=== PATIENT | female | born 1985 | race African-American/Black ===

== ENCOUNTER 2016-10-20 11:54 | Emergency (ER) | payer OTHER ==
[2016-10-20 12:01] VITALS: BP 151/79; PULSE 95; TEMP 98.3; BMI 25.4
--- NOTE | 2016-10-20 12:30 | PDOC ---
History of Present Illness - General Chief Complaint: Pain Stated Complaint: FATIGUE, PELVIC PAIN Time Seen by Provider: 10/20/16 12:06 History Source: Patient Exam Limitations: No Limitations - History of Present Illness Travel History: No Initial Comments: 10/20/16 12:18 Patient comes to emergency department for evaluation of worsened abdominal cramping, back pain, and knowledge of large fibroids. Patient states has seen Dr. Sanchez multiple occasions, for profuse bleeding and severe anemia associated with her fibroids. Is ineligible financially/from insurance for Lupron injections, and Dr. Sanchez has recommended hysterectomy for excision. Patient is hoping not to need surgical intervention,. Denies fever, nausea vomiting, any changes in bowel, no dysuria. States has onset of worsened pain that she's experienced now with onset of menstrual cycle in approximately one week. However states today's pain is much worse 10/20/16 12:32 10/22/16 10:11 Timing/Duration: reports: getting worse, changing over time, intermittent Quality: reports: moderate, severe, cramping, dullness Abdominal Pain Onset Location: reports: suprapubic, generalized abdomen Pain Radiation: reports: no radiation Alleviating Factors: improves with: None Past History - Travel Traveled outside of the country in the last 30 days: No Close contact w/someone who was outside of country & ill: No - Past Medical History Allergies/Adverse Reactions: Allergies Allergy/AdvReac Type Severity Reaction Status Date / Time No Known Drug Allergies Allergy Verified 10/20/16 12:00 Home Medications: Ambulatory Orders Ferrous Sulfate 325 mg PO TIDCM #90 tablet 07/13/15 Anemia: Yes Asthma: No Cancer: No Cardiac Disorders: No CVA: No COPD: No CHF: No Dementia: No Diabetes: No GI Disorders: No Disorders: Yes (uterine fibroid) HTN: No Hypercholesterolemia: No Liver Disease: No Seizures: No Thyroid Disease: No - Surgical History Abdominal Surgery: No Appendectomy: No Cardiac Surgery: No Cholecystectomy: Yes Lung Surgery: No Neurologic Surgery: No Orthopedic Surgery: Yes (left ankle ORIF) - Family Disease History Family Disease History: Diabetes: Grandparents, Heart Disease: Mother - Immunization History Immunization Up to Date: Yes - Psycho/Social/Smoking Cessation Hx Anxiety: No Suicidal Ideation: No Smoking History: Never smoked Have you smoked in the past 12 months: No Hx Alcohol Use: Yes (SOCIAL) Drug/Substance Use Hx: No Substance Use Type: None Hx Substance Use Treatment: No Review of Systems - Review of Systems Able to Perform ROS?: No Is the patient limited Chinese proficient: No Constitutional: Yes: Symptoms Reported, See HPI, Malaise. No: Chills, Fever HEENTM: Yes: See HPI. No: Symptoms Reported Respiratory: Yes: See HPI. No: Symptoms reported ABD/GI: Yes: Symptoms Reported, See HPI, Abdominal cramping, Other. No: Nausea , Rectal Bleeding, Vomiting Neurological: Yes: Symptoms reported All Other Systems: Reviewed and Negative *Physical Exam - Vital Signs Last Vital Signs Temp Pulse Resp BP Pulse Ox 98.3 F 95 H 20 151/79 100 10/20/16 11:57 10/20/16 11:57 10/20/16 11:57 10/20/16 11:57 10/20/16 11:57 - Physical Exam General Appearance: Yes: Nourished, Appropriately Dressed, Apparent Distress, Mild Distress HEENT: positive: TONYA, Normal ENT Inspection, TMs Normal, Pharynx Normal Neck: positive: Supple. negative: Tender Respiratory/Chest: positive: Lungs Clear, Normal Breath Sounds Cardiovascular: positive: Regular Rhythm Gastrointestinal/Abdominal: positive: Normal Bowel Sounds, Tender (mild suprapubic tendernes ), Soft. negative: Organomegaly, Guarding, Rebound Musculoskeletal: positive: Normal Inspection. negative: CVA Tenderness Extremity: positive: Normal Capillary Refill, Normal Inspection, Tender Integumentary: positive: Dry, Warm, Pale Neurologic: positive: nursing admin II-XII NML intact, Fully Oriented, Alert, Normal Mood/ Affect, Normal Response, Motor Strength / ED Treatment Course - LABORATORY CBC & Chemistry Diagram: 10/20/16 12:50 10/20/16 12:50 Progress Note - Progress Note Progress Note: Uterine fibroids, with heavy menses. We'll check H&H, provide pain meds and reeval. Medical Decision Making - Medical Decision Making 10/20/16 14:09 H&H 24 and 7.6. Reviewed with patient who reports that she does not wish transfusion. Follow up with her [facility] doctor and understands need for increasing fluids 10/22/16 10:13 *DC/Admit/Observation/Transfer Diagnosis at time of Disposition: Menorrhagia Qualifiers: Menorrahagia type: with onset of menstrual periods Qualified Code(s): N92.2 - Excessive menstruation at puberty Anemia Qualifiers: Anemia type: unspecified type Qualified Code(s): D64.9 - Anemia, unspecified - Discharge Dispostion Disposition: HOME Condition at time of disposition: Stable Admit: No - Patient Instructions Printed Discharge Instructions: DI for Uterine Fibroids Additional Instructions: Rest, drink lots of fluids: Teas, water, soups Ebnita agustina, carbonated beverages for the bubbles May try peppermint teas Continue [id number] medications for symptomatic relief Tylenol or Motrin for fever and pain Followup with private physician in one to 2 days Return to emergency department for worsened symptoms, fevers, dehydration - Post Discharge Activity Work/School Note: Back to Work
[2016-10-20] MEDS ORDERED: KETOROLAC TROMETHAMINE 60 MG/2 ML VIAL IM ONE (12:37)
[2016-10-20] MEDS ORDERED: KETOROLAC TROMETHAMINE 60 MG/2 ML VIAL ONE (13:06)
[2016-10-20 13:22] LABS: BASOPHIL 0.8 % (0-2.0); EOSINOPHIL 1.1 % (0-4.5); MCHC 29.5 g/dl (32.0-36.0); MEAN PLT VOLUME 9.6 fl (7.5-11.1); NEUTROPHILS 79.4 % (42.8-82.8); PLATELET COUNT 191 K/MM3 (134-434); RDW 20.8 % (11.6-15.6); WHITE BLOOD COUNT 8.6 K/mm3 (4.0-10.0)
[2016-10-20 13:23] LABS: MCH 18.6 pg (25.7-33.7)
[2016-10-20 13:47] LABS: ALBUMIN 3.6 g/dl (3.4-5.0); ALK PHOS 47 U/L (45-117); ANION GAP 9 (8-16); BILIRUBIN,TOTAL 0.6 mg/dL (0.2-1.0); CALCIUM 8.3 mg/dL (8.5-10.1); CO2 26 mmol/L (21-32); COCKROFT - GAULT 169.6005; CREATININE 0.5 mg/dL (0.55-1.02); GLUCOSE,RANDOM 83 mg/dL (74-106); SGOT/AST 12 U/L (15-37); SGPT/ALT 14 U/L (12-78)
[2016-10-20 13:57] LABS: TOT PROT 7.2 g/dl (6.4-8.2)
[2016-10-20 14:40] LABS: ANISOCYTOSIS 3+; HYPOCHROMIA 4+; MICROCYTOSIS 3+; POLYCHROMASIA 1+; TARGET CELLS 2+; TEAR DROP CELLS 2+
--- NOTE | 2016-10-20 14:56 | PDOC ---
*Physical Exam - Vital Signs Last Vital Signs Temp Pulse Resp BP Pulse Ox 98.3 F 95 H 20 151/79 100 10/20/16 11:57 10/20/16 11:57 10/20/16 11:57 10/20/16 11:57 10/20/16 11:57 - Physical Exam General Appearance: Yes: Nourished, Appropriately Dressed HEENT: positive: Normal ENT Inspection Neck: positive: Trachea midline Respiratory/Chest: positive: Lungs Clear, Normal Breath Sounds Cardiovascular: positive: Regular Rhythm, Regular Rate, S1, S2. negative: Edema , JVD Gastrointestinal/Abdominal: positive: Normal Bowel Sounds. negative: Tender, Flat Musculoskeletal: positive: Normal Inspection Extremity: positive: Normal Capillary Refill Integumentary: positive: Normal Color, Dry, Warm Neurologic: positive: Fully Oriented, Alert, Normal Mood/Affect ED Treatment Course - LABORATORY CBC & Chemistry Diagram: 10/20/16 12:50 10/20/16 12:50 - ADDITIONAL ORDERS Additional order review: Laboratory Results 10/20/16 10/20/16 12:50 12:50 Sodium 141 Potassium 3.7 Chloride 106 Carbon Dioxide 26 Anion Gap 9 BUN 12 Creatinine 0.5 L Creat Clearance w eGFR > 60 Random Glucose 83 Calcium 8.3 L Total Bilirubin 0.6 AST 12 L ALT 14 Alkaline Phosphatase 47 Total Protein 7.2 Albumin 3.6 Blood Type A POSITIVE Antibody Screen Negative 10/20/16 12:50 RBC 4.09 MCV 63.0 L MCHC 29.5 L RDW 20.8 H D MPV 9.6 Neutrophils % 79.4 D Lymphocytes % 10.4 D Monocytes % 8.3 Eosinophils % 1.1 Basophils % 0.8 - Medications Given in the ED: ED Medications Discontinued Medications Generic Name Dose Route Start Last Admin Trade Name Freq PRN Reason Stop Dose Admin Ketorolac Tromethamine 60 mg 10/20/16 12:37 10/20/16 13:10 Toradol Injection - IM 10/20/16 12:38 60 mg ONCE ONE Administration Medical Decision Making - Medical Decision Making 10/20/16 14:51 31 yo F with h/o fibroids, on iron and anemia here with c/o feeling lighteaded fatigue and weak. no f/c no current bleeding. lmp 5/9. has heavy long periods, and bleeding between periods. was going to start lupron, but didn't qualify for insurance reason. no cp . has had transfusions in the past. on exam awake alert lung clear. heart RRR no mr/g. abd soft NT. nuero a&0 x 3. differential. amrita eval anemia, transfuse as needed. 10/20/16 14:54 d/w pt regarding risk and benefit of transfusion. would not like to have transfusion at this time. encouraged to continue taking iron. followup with patternmaker sample regarding iron and other options such as depot or ocp's. 10/20/16 14:55 seen and examined, and eval with Gali Dave, agree with her assessment and plan. *DC/Admit/Observation/Transfer Diagnosis at time of Disposition: Anemia Menorrhagia Qualifiers: Menorrahagia type: with onset of menstrual periods Qualified Code(s): N92.2 - Excessive menstruation at puberty - Discharge Dispostion Disposition: HOME Condition at time of disposition: Stable - Referrals - Patient Instructions Printed Discharge Instructions: DI for Uterine Fibroids Additional Instructions: Rest, drink lots of fluids: Teas, water, soups Benita agustina, carbonated beverages for the bubbles May try peppermint teas Continue [id number] medications for symptomatic relief Tylenol or Motrin for fever and pain Followup with private physician in one to 2 days Return to emergency department for worsened symptoms, fevers, dehydration - Post Discharge Activity Work/School Note: Back to Work
== END 2016-10-20 14:15 | disposition home or self-care (01) ==
LOC: JER 11:54
PROC: 3E0233Z Introduction of Anti-inflammatory into Muscle, Percutaneous Approach (ICD-10-PCS; principal; 2016-10-20)
DX: N92.0 Excessive and frequent menstruation with regular cycle (principal); D25.9 Leiomyoma of uterus, unspecified
CPT/HCPCS: 36415; 80053; 85025; 86850; 86900; 86901; 99283-25

== ENCOUNTER 2017-04-29 11:34 | Observation (INO) | payer OTHER ==
[2017-04-29 11:46] VITALS: BMI 25.2
--- NOTE | 2017-04-29 12:07 | PDOC ---
History of Present Illness - General Chief Complaint: Revisit, Lab Variance Stated Complaint: PMD sent for Anemia, due to vag bleed Time Seen by Provider: 04/29/17 11:55 History Source: Patient - History of Present Illness Initial Comments: 04/29/17 12:05 Patient is a 32 y.o. female with a PMH of uterine fibroids who presents to the ED after a pre-operative evaluation @ her PCP that showed Hb 5.7. Patient denies any associated shortness of breath, lightheadedness, chest pain or abdominal cramping. Patient states she has been evaluated by an [facility] an is in the process of scheduling an arterial embolization. Patient's LMP was -04/22/17 and her cycles are regular. NKDA Surgical: Cholecystectomy Social: denies cigarettes, denies alcohol, denies recreational drugs PMD: Dr. Richards; OB-[facility] SHERIFF: Dr. Reese Past History - Past Medical History Allergies/Adverse Reactions: Allergies Allergy/AdvReac Type Severity Reaction Status Date / Time No Known Drug Allergies Allergy Verified 04/29/17 11:46 Home Medications: Ambulatory Orders NK [No Known Home Medication] 04/29/17 Anemia: Yes Asthma: No Cancer: No Cardiac Disorders: No CVA: No COPD: No CHF: No DVT: No Dementia: No Diabetes: No GI Disorders: No Disorders: Yes (uterine fibroid) HTN: No Hypercholesterolemia: No Liver Disease: No Seizures: No Thyroid Disease: No - Surgical History Abdominal Surgery: No Appendectomy: No Cardiac Surgery: No Cholecystectomy: Yes Lung Surgery: No Neurologic Surgery: No Orthopedic Surgery: Yes (left ankle ORIF) - Family Disease History Family Disease History: Diabetes: Grandparents, Heart Disease: Mother - Reproductive History (#): 1 Para: 1 Therapeutic (s) & number: No Spontaneous : 0 - Immunization History Immunization Up to Date: Yes - Suicide/Smoking/Psychosocial Hx Smoking History: Never smoked Have you smoked in the past 12 months: No Information on smoking cessation initiated: No Hx Alcohol Use: No Drug/Substance Use Hx: No Substance Use Type: None Hx Substance Use Treatment: No Review of Systems - Review of Systems Constitutional: No: Chills, Fever Respiratory: No: Cough, Shortness of Breath Cardiac (ROS): No: Chest Pain, Lightheadedness, Palpitations, Syncope ABD/GI: No: Abdominal cramping *Physical Exam - Vital Signs Last Vital Signs Temp Pulse Resp BP Pulse Ox 97.8 F 81 18 139/82 100 04/29/17 11:43 04/29/17 11:43 04/29/17 11:43 04/29/17 11:43 04/29/17 11:43 - Physical Exam General Appearance: Yes: Nourished, Appropriately Dressed Cardiovascular: positive: S1, S2 Gastrointestinal/Abdominal: positive: Normal Bowel Sounds, Flat, Soft. negative : Tender, Distended, Guarding, Rebound, Tenderness Musculoskeletal: negative: CVA Tenderness (R), CVA Tenderness (L) Extremity: positive: Normal Capillary Refill, Normal Inspection Integumentary: positive: Normal Color, Dry, Warm Neurologic: positive: Fully Oriented, Alert ED Treatment Course - LABORATORY CBC & Chemistry Diagram: 04/29/17 11:50 04/29/17 12:30 Medical Decision Making - Medical Decision Making 04/29/17 12:10 Patient is a 32 y.o. female who presents with lab reports showing an Hb PLAN: 1. CBC, CMP 2. Urine Likely dispo is obs admission w/ 2 unit transfusion 04/29/17 14:50 Hb 5.2. Will transfuse 2 units; paged inpatient medicine service for admission 04/29/17 15:57 Patient admitted to medicine service, observation. *DC/Admit/Observation/Transfer Diagnosis at time of Disposition: Anemia Qualifiers: Anemia type: unspecified type Qualified Code(s): D64.9 - Anemia, unspecified - Discharge Dispostion Admit: Yes - Referrals - Patient Instructions - Post Discharge Activity
--- NOTE | 2017-04-29 12:18 | PDOC ---
Attending Attestation - Resident Resident Name: Kinza Levi - ED Attending Attestation I have performed the following: I have examined & evaluated the patient, The case was reviewed & discussed with the resident, I agree w/resident's findings & plan, Exceptions are as noted - HPI HPI: 04/29/17 12:17 32y F hx of uterine fibroids awaiting was found to have hbg of 5.5 from outpatient labs and told to come to ED for tranfusion . pt is otherwise asymptomatic wihtout signs of sob, palitations, cp, duque. pts exam unremarkble no active bleeding currently will recheck her labs, if severely anemic will transfuse - Physicial Exam PE: 04/29/17 13:34 general: pale conjunctiva abd: soft nontender heart: rrr, no m/r/g pulm: cta b/l - Medical Decision Making 04/29/17 13:31 pts hbg noted to be 5.7, will transfuse with 2 u will admit to hosptialist service 04/29/17 13:34
[2017-04-29 12:44] LABS: BASO % 0.9 % (0-2.0); EOS % 1.1 % (0-4.5); MCHC 25.7 g/dl (32.0-36.0); MEAN PLT VOLUME 9.9 fl (7.5-11.1); NEUT % 61.3 % (42.8-82.8); PLATELET COUNT 284 K/MM3 (134-434); RDW 24.4 % (11.6-15.6); WHITE BLOOD COUNT 8.4 K/mm3 (4.0-10.0)
[2017-04-29 12:46] LABS: MCH 14.1 pg (25.7-33.7)
[2017-04-29 13:10] LABS: ALBUMIN 3.8 g/dl (3.4-5.0); ALK PHOS 47 U/L (45-117); ANION GAP 7 (8-16); BILIRUBIN,TOTAL 0.9 mg/dL (0.2-1.0); CALCIUM 8.8 mg/dL (8.5-10.1); CO2 26 mmol/L (21-32); CREATININE 0.5 mg/dL (0.55-1.02); GLUCOSE,RANDOM 81 mg/dL (74-106); SGPT/ALT 17 U/L (12-78); TOT PROT 7.4 g/dl (6.4-8.2)
[2017-04-29 13:11] LABS: SGOT/AST 31 U/L (15-37)
[2017-04-29 13:26] LABS: INR 1.04 (0.82-1.09); PROTHROMBIN TIME (PATIENT) 11.7 SEC (9.98-11.88)
[2017-04-29 13:28] LABS: ACTIVATED PTT 28.9 SECONDS (26.9-34.4)
--- NOTE | 2017-04-29 15:31 | HP ---
CHIEF COMPLAINT: Sent over by PCP for low hemoglobin PCP: Dr. Terrell Richards OBGYN: Dr. Reese HISTORY OF PRESENT ILLNESS: Patient is a 32 year old female with a PMHx of Uterine Fibroids and Anemia secondary to menorrhagia who was sent over by her PCP for low hemoglobin. Patient was having pre-operative testing/clearance done for a planned uterine embolization and had her Blood work done on 04/27/17 which revealed a hemoglobin a 5. Patient states she has chronic fatigue due to her menorrhagia but has been feeling more fatigued lately due to stress and overworking. Patient reports having extremely heavy periods with clots that usually last around 7 days but this month it lasted for 9 day, which is longer than her usual duration. Patient states her LMP was on 04/15/17. She denies any shortness of breath, orthopnea, dyspnea on exertion, chest pain, palpitations, fever, chills, night sweats, nausea, vomiting, dysuria, hematuria, hematochezia , melena. ER course was notable for: (1) CBC revealed Hemoglobin of 5.7 (2) Started on PRBC (3) Recent Travel: Denies PAST MEDICAL HISTORY: leiomyomas, Iron Deficiency Anemia PAST SURGICAL HISTORY: Cholecystectomy (1999), Left ankle ORIF (05/2014) Social History: Smoking: Denies Alcohol: Denies Drugs: Denies Family History: Father- Diabetes and stomach cancer Allergies: No Known Drug Allergies Allergy (Verified 04/29/17 11:46) HOME MEDICATIONS: Home Medications Medication Instructions Recorded NK [No Known Home Medication] 04/29/17 REVIEW OF SYSTEMS CONSTITUTIONAL: generalized weakness, fatigue Absent: fever, chills, diaphoresis, malaise, loss of appetite, weight change HEENT: Absent: rhinorrhea, nasal congestion, throat pain, throat swelling, difficulty swallowing, mouth swelling, ear pain, eye pain, visual changes CARDIOVASCULAR: Absent: chest pain, syncope, palpitations, irregular heart rate, lightheadedness , peripheral edema RESPIRATORY: Absent: cough, shortness of breath, dyspnea with exertion, orthopnea, wheezing, stridor, hemoptysis GASTROINTESTINAL: Absent: abdominal pain, abdominal distension, nausea, vomiting, diarrhea, constipation, melena, hematochezia GENITOURINARY: Absent: dysuria, frequency, urgency, hesitancy, hematuria, flank pain, genital pain MUSCULOSKELETAL: Absent: myalgia, arthralgia, joint swelling, back pain, neck pain SKIN: Absent: rash, itching, pallor HEMATOLOGIC/IMMUNOLOGIC: Absent: easy bleeding, easy bruising, lymphadenopathy, frequent infections ENDOCRINE: Absent: unexplained weight gain, unexplained weight loss, heat intolerance, cold intolerance NEUROLOGIC: Absent: headache, focal weakness or paresthesias, dizziness, unsteady gait, seizure, mental status changes, bladder or bowel incontinence PSYCHIATRIC: Absent: anxiety, depression, suicidal or homicidal ideation, hallucinations. PHYSICAL EXAMINATION Vital Signs - 24 hr 04/29/17 04/29/17 04/29/17 11:43 14:40 14:55 Temperature 97.8 F 98.6 F 98.3 F Pulse Rate 81 Pulse Rate [ 92 H 94 H Apical] Respiratory 18 18 18 Rate Blood Pressure 139/82 Blood Pressure 127/76 115/65 [Right Arm] O2 Sat by Pulse 100 99 100 Oximetry (%) GENERAL: Awake, alert, and fully oriented, in no acute distress. HEAD: Normal with no signs of trauma. EYES: Pupils equal, round and reactive to light, extraocular movements intact, sclera anicteric, conjunctiva clear. EARS, NOSE, THROAT: Oropharynx clear without exudates. Moist mucous membranes. NECK: Normal range of motion, supple without lymphadenopathy, JVD, or masses. LUNGS: Breath sounds equal, clear to auscultation bilaterally. No wheezes, and no crackles. No accessory muscle use. HEART: Regular rate and rhythm, normal S1 and S2 without murmur, rub or gallop. ABDOMEN: Soft, mild tenderness upon palpation of suprapubic region, not distended, normoactive bowel sounds, no guarding, no rebound, no masses. No hepatomegaly or splenomegaly. MUSCULOSKELETAL: No CVA tenderness. UPPER EXTREMITIES: . No peripheral edema. LOWER EXTREMITIES: 2+ pulses, warm, well-perfused. No calf tenderness. No peripheral edema. NEUROLOGICAL: Cranial nerves II-XII intact. Normal speech. Sensory intact. Motor strength 5/5 bilaterally PSYCHIATRIC: Cooperative. Good eye contact. Appropriate mood and affect. SKIN: Warm, dry, normal turgor, no rashes or lesions noted, normal capillary refill. Laboratory Results - last 24 hr 04/29/17 04/29/17 04/29/17 11:50 11:50 11:50 WBC 8.4 RBC 4.01 Hgb 5.7 L* D Hct 22.1 L MCV 55.0 L MCH 14.1 L MCHC 25.7 L RDW 24.4 H D Plt Count 284 D MPV 9.9 Neutrophils % 61.3 D Lymphocytes % 29.4 D Monocytes % 7.3 Eosinophils % 1.1 Basophils % 0.9 PT with INR 11.70 INR 1.04 PTT (Actin FS) 28.9 Sodium Potassium Chloride Carbon Dioxide Anion Gap BUN Creatinine Creat Clearance w eGFR Random Glucose Calcium Total Bilirubin AST ALT Alkaline Phosphatase Total Protein Albumin Urine HCG, Qual Blood Type A POSITIVE Antibody Screen Negative Crossmatch See Detail 04/29/17 04/29/17 12:30 12:40 WBC RBC Hgb Hct MCV MCH MCHC RDW Plt Count MPV Neutrophils % Lymphocytes % Monocytes % Eosinophils % Basophils % PT with INR INR PTT (Actin FS) Sodium 139 Potassium 4.7 D Chloride 106 Carbon Dioxide 26 Anion Gap 7 L BUN 15 D Creatinine 0.5 L Creat Clearance w eGFR > 60 Random Glucose 81 Calcium 8.8 Total Bilirubin 0.9 D AST 31 D ALT 17 D Alkaline Phosphatase 47 Total Protein 7.4 Albumin 3.8 Urine HCG, Qual Negative Blood Type Antibody Screen Crossmatch ASSESSMENT/PLAN: Patient is a 32 year old female who was sent over by her PCP after pre-op testing for uterine embolization revealed a hemoglobin level of 5. Patient was found to have a hemoglobin of 5.7 in the ED and admitted for further monitoring and management. Symptomatic Anemia -Likely secondary to Menorrhagia due to leiomyomas -2 PRBC's ordered and currently being transfused -Will need to follow up with OBGYN and PCP for repeat CBC before procedure -Repeat CBC in the morning F/E/N -On no fluids -Electrolytes wnl -Regular diet Prophylaxis -Low risk. Ambulates. No DVT prophylaxis required -No GI required Disposition -Full code -Will remain overnight for transfusions and repeat Hemoglobin. Will likely require observation overnight Visit type - Emergency Visit Emergency Visit: Yes ED Registration Date: 04/29/17 Care time: The patient presented to the Emergency Department on the above date and was hospitalized for further evaluation of their emergent condition. - New Patient This patient is new to me today: Yes Date on this admission: 04/29/17 - Critical Care Critical Care patient: No
[2017-04-29] MEDS ORDERED: ACETAMINOPHEN 325 MG TABLET (FP) ONE (15:35)
[2017-04-29 15:47] LABS: ANISOCYTOSIS 3+; HYPOCHROMIA 4+; MICROCYTOSIS 3+; TARGET CELLS 2+
--- NOTE | 2017-04-29 17:49 | PN ---
Teaching Attending Note Name of Resident: Arin Lopez ATTENDING PHYSICIAN STATEMENT I saw and evaluated the patient. I reviewed the resident's note and discussed the case with the resident. I agree with the resident's findings and plan as documented. SUBJECTIVE:32yo F with PMH fibroids with plan for uterine embolization was sent to the ER for blood transfusion after on routine pre-op testing she was found to have Hgb 5. Blood work was done 04/27. states in retrospect have been more fatigued lately but contributed it to work. has hx of heavy menses with passing multiple blood clots. LMP 04/15 lasting 9 days which is longer than her typical menses. denies Cp, SOB< fever, chills, N/V/C/D, hematuria, BRBPR or melena OBJECTIVE: Last Vital Signs Temp Pulse Resp BP Pulse Ox 98.3 F 94 H 18 115/65 100 04/29/17 14:55 04/29/17 14:55 04/29/17 14:55 04/29/17 14:55 04/29/17 14:55 General NAD CV S1 S2 RRR no murmur/rub/gallop Lungs CTA B/L no wheezing/rales/rhonchi Abdomen Soft mild tenderness in suprapubic region. ND normoactive BS Extremities no pitting edema ASSESSMENT AND PLAN: 32yo F with PMH fibroids with plan for uterine embolization was sent to the ER for blood transfusion after on routine pre-op testing she was found to have Hgb 5. 1. Symptomatic Anemia- medicine observation. +lethargy with low Hgb due to menorrhagia. txn 2 units PRBC and check post-op cbc.avoid NSAIDS. would recommend repeat Hgb prior to procedure. f/u with CONSTRU[facility] ADMINISTRATOR outpatient. repeat CBC in AM if stable can d/c home
[2017-04-30 07:45] LABS: MCHC 29.4 g/dl (32.0-36.0); MEAN CELL VOLUME 61.1 fl (80-96); MEAN PLT VOLUME 9.3 fl (7.5-11.1); PLATELET COUNT 260 K/MM3 (134-434); RDW 30.9 % (11.6-15.6); WHITE BLOOD COUNT 8.4 K/mm3 (4.0-10.0)
[2017-04-30 09:26] VITALS: BP 126/65; PULSE 80; TEMP 98.3
--- NOTE | 2017-04-30 10:09 | DS ---
Physical Exam: SUBJECTIVE: Patient seen and examined. asymptomatic. denies CP, SOB, fever, chills, N/V/C/D OBJECTIVE: Vital Signs Period Temp Pulse Resp BP Sys/Santos Pulse Ox Last 24 Hr 97.8 F-98.6 F 75-94 18-20 111-139/63-85 98-100 PHYSICAL EXAM GENERAL: The patient is awake, alert, and fully oriented, in no acute distress. HEAD: Normal with no signs of trauma. EYES: PERRL, extraocular movements intact, sclera anicteric, conjunctiva clear. ENT: Ears normal, nares patent, oropharynx clear without exudates, moist mucous membranes. NECK: Trachea midline, full range of motion, supple. LUNGS: Breath sounds equal, clear to auscultation bilaterally, no wheezes, no crackles, no accessory muscle use. HEART: Regular rate and rhythm, S1, S2 without murmur, rub or gallop. ABDOMEN: Soft, nontender, nondistended, normoactive bowel sounds, no guarding, no rebound, no hepatosplenomegaly, no masses. EXTREMITIES: 2+ pulses, warm, well-perfused, no edema. NEUROLOGICAL: Cranial nerves II through XII grossly intact. Normal speech, gait not observed. PSYCH: Normal mood, normal affect. SKIN: Warm, dry, normal turgor, no rashes or lesions noted. LABS Laboratory Results - last 24 hr 04/29/17 04/29/17 04/29/17 11:50 11:50 11:50 WBC 8.4 RBC 4.01 Hgb 5.7 L* D Hct 22.1 L MCV 55.0 L MCH 14.1 L MCHC 25.7 L RDW 24.4 H D Plt Count 284 D MPV 9.9 Neutrophils % 61.3 D Lymphocytes % 29.4 D Monocytes % 7.3 Eosinophils % 1.1 Basophils % 0.9 Hypochromia 4+ Anisocytosis 3+ Microcytosis 3+ Target Cells 2+ Fragmented RBCs 2+ PT with INR 11.70 INR 1.04 PTT (Actin FS) 28.9 Sodium Potassium Chloride Carbon Dioxide Anion Gap BUN Creatinine Creat Clearance w eGFR Random Glucose Calcium Total Bilirubin AST ALT Alkaline Phosphatase Total Protein Albumin Urine HCG, Qual Blood Type A POSITIVE Antibody Screen Negative Crossmatch See Detail 04/29/17 04/29/17 04/30/17 12:30 12:40 07:25 WBC 8.4 RBC 4.16 Hgb 7.5 L D Hct 25.4 L MCV 61.1 L D MCH 18.0 L MCHC 29.4 L RDW 30.9 H Plt Count 260 MPV 9.3 Neutrophils % Lymphocytes % Monocytes % Eosinophils % Basophils % Hypochromia Anisocytosis Microcytosis Target Cells Fragmented RBCs PT with INR INR PTT (Actin FS) Sodium 139 Potassium 4.7 D Chloride 106 Carbon Dioxide 26 Anion Gap 7 L BUN 15 D Creatinine 0.5 L Creat Clearance w eGFR > 60 Random Glucose 81 Calcium 8.8 Total Bilirubin 0.9 D AST 31 D ALT 17 D Alkaline Phosphatase 47 Total Protein 7.4 Albumin 3.8 Urine HCG, Qual Negative Blood Type Antibody Screen Crossmatch HOSPITAL COURSE: Date of Admission:04/29/17 Date of Discharge: 04/30/17 Admitting diagnosis: Symptomatic anemia Pre hospital course 32yo F with PMH fibroids with plan for uterine embolization was sent to the ER for blood transfusion after on routine pre-op testing she was found to have Hgb 5. Blood work was done 04/27. states in retrospect have been more fatigued lately but contributed it to work. has hx of heavy menses with passing multiple blood clots. LMP 04/15 lasting 9 days which is longer than her typical menses. denies Cp, SOB< fever, chills, N/V/C/D, hematuria, BRBPR or melena Subsequent hospital course Medicine observation. transfused 2 units PRBC with good response. d/c home Minutes to complete discharge: 45 Discharge Summary Reason For Visit: ANEMIA Current Active Problems Anemia (Chronic) Condition: Improved - Instructions Diet, Activity, Other Instructions: You were admitted to the hospital due to symptomatic anemia. You received 2 units of blood with good response. Follow up with your Gyneocologist for planned surgery for your fibroids. Follow up with your primary care doctor next week for repeat labs to ensure your blood counts are stable If you develop fatigue, dizzyness or chest pain or signficant bleeding return to the ER. Referrals: Terrell Richards MD [Primary Care Provider] - Disposition: HOME - Home Medications Comprehensive Discharge Medication List: Ambulatory Orders NK [No Known Home Medication] 04/29/17 This patient is new to me today: No Emergency Visit: Yes ED Registration Date: 04/29/17 Care time: The patient presented to the Emergency Department on the above date and was hospitalized for further evaluation of their emergent condition. Critical Care patient: No - Discharge Referral Referred to [facility] No
== END 2017-04-30 10:44 | disposition home or self-care (01) ==
LOC: JER 11:34 → JERBED 15:51 → J5S 16:27
PROVIDERS: ADMIT Internal Medicine; ATTEND Internal Medicine
PROC: 30233N1 Transfusion of Nonautologous Red Blood Cells into Peripheral Vein, Percutaneous Approach (ICD-10-PCS; principal; 2017-04-29)
DX: D64.9 Anemia, unspecified (principal); D25.9 Leiomyoma of uterus, unspecified
CPT/HCPCS: 36415; 36430; 36511; 80053; 84703; 85025; 85027; 85610; 85730; 86850; 86900; 86901; 86922; 99284-25; G0378; P9038; P9058

== ENCOUNTER 2018-03-17 23:23 | Emergency (ER) | payer OTHER ==
[2018-03-18] MEDS ORDERED: SODIUM CHLORIDE 1,000 ML IV STA (00:18)
--- NOTE | 2018-03-18 00:27 | PDOC ---
History of Present Illness - General Stated Complaint: CHEST PAIN Time Seen by Provider: 03/18/18 00:03 History Source: Patient, Old Records Exam Limitations: No Limitations - History of Present Illness Initial Comments: 03/18/18 00:18 HISTORY OF PRESENT ILLNESS: This is a 33-year-old woman past medical history of uterine fibroids, chronic back pain and anemia presents emergency Department for evaluation of 3 days of "strange feeling in my chest" which has now progressed to her left arm making it feel "heavy." Upon clarification, patient states she has brief episodes of increased heart rate which lasts for approximately 5 minutes and then spontaneously resolved. Patient denies any aggravating or alleviating factors. Patient reports never having this sensation before concerned now that it is moved to her left arm. Patient reports she takes no medications were supposed be taking iron is not taking it due to GI distress. Patient denies any fevers, chills, shortness of breath, nausea, vomiting. Patient currently with lower abdominal pain consistent with her usual menstrual cramps which started 2 days ago. Patient reports light flow and has only had spotting on 2 pads today. Patient has been taking Excedrin for the pain. No recent travel or sick contacts. PAST MEDICAL HISTORY: see HPI SURGICAL HISTORY: Denies ALLERGIES: No known drug allergies REVIEW OF SYSTEMS General/Constitutional: Denies fever or chills. Denies weakness, weight change. HEENT: Denies change in vision. Denies ear pain or discharge. Denies sore throat. Cardiovascular: +palpitations. Denies shortness of breath. Respiratory: Denies cough, wheezing, or hemoptysis. Gastrointestinal: Denies nausea, vomiting, diarrhea or constipation. Denies rectal bleeding. +lower abdominal cramping Genitourinary: Denies dysuria, frequency, or change in urination. Musculoskeletal: Denies joint or muscle swelling or pain. Denies neck or back pain. Skin and breasts: Denies rash or easy bruising. Neurologic: Denies headache, vertigo, loss of consciousness, or loss of sensation. Psychiatric: Denies depression or anxiety. Endocrine: Denies increased thirst. Denies abnormal weight change. Hematologic/Lymphatic: Denies anemia, easy bleeding, or history of blood clots. Allergic/Immunologic: Denies hives or skin allergy. Denies latex allergy. PHYSICAL EXAM General Appearance: Well-appearing, appropriately dressed. No apparent distress , no intoxication. HEENT: EOMI, PERRLA, normal ENT inspection, normal voice, TMs normal, pharynx normal. No conjunctival pallor. No photophobia, scleral icterus. Neck: Supple. Trachea midline. No tenderness, rigidity, carotid bruit, stridor , lymphadenopathy, or thyromegaly. Respiratory/Chest: Lungs CTAB. No shortness of breath, chest tenderness, respiratory distress, accessory muscle use. No crackles, rales, rhonchi, stridor , wheezing, dullness Cardiovascular: RRR. S1, S2. No JVD, murmur, bradycardia, tachycardia. Vascular Pulses: Dorsalis-Pedis (R): 2+, Dorsalis-Pedis (L): 2+ Gastrointestinal/Abdominal: Normal bowel sounds. Abdomen soft, non-distended. No tenderness or rebound tenderness. No organomegaly, pulsatile mass, guarding, hernia, hepatomegaly, splenomegaly. Lymphatic: No adenopathy, tenderness. Musculoskeletal/Extremities: Normal inspection. FROM of all extremities, normal capillary refill. Pelvis Stable. No CVA tenderness. No tenderness to extremities, pedal edema, swelling, erythema or deformity. Integumentary: Appropriate color, dry, warm. No cyanosis, erythema, jaundice or rash Neurologic: software support analyst II-XII intact. Fully oriented, alert. Appropriate mood/affect. Motor strength 5/5. No appreciable EOM palsy, facial droop or sensory deficit. Past History - Past Medical History Allergies/Adverse Reactions: Allergies Allergy/AdvReac Type Severity Reaction Status Date / Time No Known Drug Allergies Allergy Verified 03/18/18 00:31 Home Medications: Ambulatory Orders NK [No Known Home Medication] 04/29/17 Anemia: Yes Asthma: No Cancer: No Cardiac Disorders: No CVA: No COPD: No CHF: No DVT: No Dementia: No Diabetes: No GI Disorders: No Disorders: Yes (uterine fibroid) HTN: No Hypercholesterolemia: No Liver Disease: No Seizures: No Thyroid Disease: No - Surgical History Abdominal Surgery: No Appendectomy: No Cardiac Surgery: No Cholecystectomy: Yes Lung Surgery: No Neurologic Surgery: No Orthopedic Surgery: Yes (left ankle ORIF) - Family Disease History Family Disease History: Diabetes: Grandparents, Heart Disease: Mother - Reproductive History (#): 1 Para: 1 Therapeutic (s) & number: No Spontaneous : 0 - Immunization History Immunization Up to Date: Yes - Suicide/Smoking/Psychosocial Hx Smoking History: Never smoked Have you smoked in the past 12 months: No Hx Alcohol Use: No Drug/Substance Use Hx: No Substance Use Type: None Hx Substance Use Treatment: No Cardiac Specific PMH - Complaint Specific PMHX Pacemaker: No *Physical Exam - Vital Signs Last Vital Signs Temp Pulse Resp BP Pulse Ox 98.3 F 80 18 140/94 100 03/17/18 23:35 03/17/18 23:35 03/17/18 23:35 03/17/18 23:35 03/17/18 23:35 Heart Score/ECG Review - History History: Slightly suspicious - Electrocardiogram EKG: Normal - Age Age: </= 45 - Risk Factors Risk Factors Heart Score: Yes Hx Obesity Based on the list above the patient has:: 1-2 risk factors - Troponin Troponin: </= normal limit - Score Heart Score - Total: 1 ED Treatment Course - LABORATORY CBC & Chemistry Diagram: 03/18/18 01:24 03/18/18 01:24 - ADDITIONAL ORDERS Additional order review: Laboratory Results 03/18/18 03/18/18 03/18/18 01:24 01:24 01:24 PT with INR 11.50 INR 0.97 D-Dimer 278 Sodium 138 Potassium 4.2 Chloride 105 Carbon Dioxide 27 Anion Gap 6 L BUN 20 H Creatinine 0.7 Creat Clearance w eGFR > 60 Random Glucose 88 Calcium 8.3 L Magnesium 2.2 Total Bilirubin 0.7 AST 26 ALT 16 Alkaline Phosphatase 53 Creatine Kinase 106 Troponin I 0.02 Total Protein 7.4 Albumin 3.7 TSH 0.79 Urine Color Urine Appearance Urine pH Ur Specific Schlater Urine Protein Urine Glucose (UA) Urine Ketones Urine Blood Urine Nitrite Urine Bilirubin Urine Urobilinogen Ur Leukocyte Esterase Urine WBC (Auto) Urine RBC (Auto) Ur Epithelial Cells Urine Bacteria Urine Mucus Urine HCG, Qual Opiates Screen Methadone Screen Barbiturate Screen Phencyclidine Screen Ur Amphetamines Screen MDMA (Ecstasy) Screen Benzodiazepines Screen Cocaine Screen U Marijuana (THC) Screen 03/18/18 03/18/18 00:59 00:59 PT with INR INR D-Dimer Sodium Potassium Chloride Carbon Dioxide Anion Gap BUN Creatinine Creat Clearance w eGFR Random Glucose Calcium Magnesium Total Bilirubin AST ALT Alkaline Phosphatase Creatine Kinase Troponin I Total Protein Albumin TSH Urine Color Yellow Urine Appearance Slcloudy Urine pH 5.0 Ur Specific Schlater 1.032 Urine Protein 1+ H Urine Glucose (UA) Negative Urine Ketones 1+ H Urine Blood 3+ H Urine Nitrite Negative Urine Bilirubin Negative Urine Urobilinogen 2.0 H Ur Leukocyte Esterase Trace Urine WBC (Auto) 7 Urine RBC (Auto) 210 Ur Epithelial Cells Few Urine Bacteria Rare Urine Mucus Many Urine HCG, Qual Negative Opiates Screen Negative Methadone Screen Negative Barbiturate Screen Negative Phencyclidine Screen Negative Ur Amphetamines Screen Negative MDMA (Ecstasy) Screen Negative Benzodiazepines Screen Negative Cocaine Screen Negative U Marijuana (THC) Screen Positive A* 03/18/18 01:24 RBC 4.49 MCV 76.4 L MCHC 32.0 RDW 14.5 D MPV 10.8 D Neutrophils % 62.0 Lymphocytes % 29.5 Monocytes % 6.4 Eosinophils % 1.4 Basophils % 0.7 - RADIOLOGY Radiology Studies Ordered: Category Date Time Status CHEST PA & LAT [RAD] Stat Radiology 03/18/18 00:18 Taken - Medications Given in the ED: ED Medications Discontinued Medications Generic Name Dose Route Start Last Admin Trade Name Freq PRN Reason Stop Dose Admin Sodium Chloride 1,000 mls @ 1,000 mls/hr 03/18/18 00:18 03/18/18 01:20 Normal Saline - IV 03/18/18 01:17 1,000 mls/hr ASDIR STA Administration Medical Decision Making - Medical Decision Making 03/18/18 00:27 A/P: 33-year-old woman with palpitations for 3 days and left arm heaviness for 1 day DDx: ACS, PE, hyperthyroidism, drug use, PNA, anemia Labs including d-dimer and TSH, urine, cardiac monitoring, chest x-ray, EKG 03/18/18 04:00 X-rays read by me: Angles clear. No focal consolidations or infiltrates present. Cardiac silhouette is within normal limits. EKG is reviewed by me and interpreted by Dr. Miranda: Sinus rhythm with rate of 78. Normal intervals noted. No ischemic changes present. Laboratory testing reveals mild azotemia. Troponin and d-dimer are negative Urinalysis is consistent with contamination due to menstrual flow. I'll discharge patient home to follow-up with her primary doctor. Patient is in agreement with this plan and assessment with the care received. *DC/Admit/Observation/Transfer Diagnosis at time of Disposition: Intermittent palpitations - Discharge Dispostion Disposition: HOME Condition at time of disposition: Stable Decision to Admit order: No - Referrals Referrals: Terrell Richards MD [Primary Care Provider] - - Patient Instructions Additional Instructions: Your EKG, x-ray and laboratory testing are negative here today. Please follow-up with her primary doctor within the next 7 days for continued evaluation of her symptoms. Return to emergency department for worsening chest pain, shortness of breath, nausea, vomiting or any other concerns. Thank you very much for choosing us to provide your emergent health care needs. - Post Discharge Activity Forms/Work/School Notes: Back to Work
[2018-03-18 00:33] VITALS: TEMP 98.3; BMI 26.2
[2018-03-18 01:09] LABS: URINE APPEARANCE SLCLOUDY; URINE BILIRUBIN NEGATIVE (<2.0 mg/dL); URINE COLOR YELLOW; URINE GLUCOSE (UA) NEGATIVE (NEGATIVE); URINE KETONE 1+ (NEGATIVE); URINE LEUK ESTERASE TRACE (NEGATIVE); URINE NITRITE NEGATIVE (NEGATIVE); URINE PROTEIN 1+ (NEGATIVE)
[2018-03-18 01:15] LABS: EPI CELLS FEW /HPF (FEW); URINE BACTERIA RARE /hpf (NONE SEEN); URINE MUCUS MANY
[2018-03-18 01:30] LABS: HCG,QUALITATIVE URINE Negative
[2018-03-18 01:45] LABS: COCAINE, UR NEGATIVE ng/ml (CUTOFF=300); METHADONE, UR NEGATIVE ng/ml (CUTOFF=300); OPIATES, URI NEGATIVE ng/ml (CUTOFF=300); PHENCYCLIDINE,URINE NEGATIVE ng/ml (CUTOFF=25); URINE AMPHETAMINES NEGATIVE ng/ml (CUTOFF=500); URINE BARBITURATES NEGATIVE ng/ml (CUTOFF=200); URINE BENZODIAZEPINES NEGATIVE ng/ml (CUTOFF=200)
[2018-03-18 01:45] LABS: BASO % 0.7 % (0-2.0); EOS % 1.4 % (0-4.5); HEMATOCRIT 34.3 % (32.4-45.2); LYMPH % 29.5 % (8-40); MCH 24.5 pg (25.7-33.7); MEAN CELL VOLUME 76.4 fl (80-96); MEAN PLT VOLUME 10.8 fl (7.5-11.1); MONO % 6.4 % (3.8-10.2); PLATELET COUNT 252 K/MM3 (134-434); RBC 4.49 M/mm3 (3.60-5.2); RDW 14.5 % (11.6-15.6); WHITE BLOOD COUNT 9.1 K/mm3 (4.0-10.0)
[2018-03-18 02:00] LABS: INR 0.97 (0.83-1.09); PROTHROMBIN TIME (PATIENT) 11.5 SEC (9.7-13.0)
[2018-03-18 02:18] LABS: ALBUMIN 3.7 g/dl (3.4-5.0); ALK PHOS 53 U/L (45-117); ANION GAP 6 MMOL/L (8-16); BILIRUBIN,TOTAL 0.7 mg/dL (0.2-1); BLOOD UREA NITROGEN 20 mg/dL (7-18); CALCIUM 8.3 mg/dL (8.5-10.1); CHLORIDE 105 mmol/L (98-107); CO2 27 mmol/L (21-32); CREATININE 0.7 mg/dL (0.55-1.3); GLUCOSE,RANDOM 88 mg/dL (74-106); MAGNESIUM 2.2 mg/dL (1.8-2.4); POTASSIUM 4.2 mmol/L (3.5-5.1); SGOT/AST 26 U/L (15-37); SGPT/ALT 16 U/L (13-61); SODIUM 138 mmol/L (136-145); TOT PROT 7.4 g/dl (6.4-8.2)
[2018-03-18 04:27] VITALS: BP 136/82; PULSE 82
--- NOTE | 2018-03-18 12:39 | EKG ---
Test Reason : Blood Pressure : / mmHG Vent. Rate : 078 BPM Atrial Rate : 078 BPM P-R Int : 176 ms QRS Dur : 088 ms QT Int : 374 ms P-R-T Axes : 040 062 038 degrees QTc Int : 426 ms NORMAL SINUS RHYTHM NORMAL ECG WHEN COMPARED WITH ECG OF 05-MAY-2016 00:05, NO SIGNIFICANT CHANGE WAS FOUND Confirmed by YADIRA ROMERO MD ([id number]) on 03/18/2018 12:39:47 PM Referred By: Confirmed By:YADIRA ROMERO MD
== END 2018-03-18 04:27 | disposition home or self-care (01) ==
LOC: JER 23:23
PROC: 3E0337Z Introduction of Electrolytic and Water Balance Substance into Peripheral Vein, Percutaneous Approach (ICD-10-PCS; principal; 2018-03-17)
DX: R00.2 Palpitations (principal)
CPT/HCPCS: 36415; 71046-TC-FY; 80053; 80307; 81003; 81015; 82550; 83735; 84443; 84484; 84703; 85025; 85379; 85610; 93005; 93010; 96360; 99282-25; J7030

== ENCOUNTER 2020-10-08 10:56 | Emergency (ER) | payer OTHER ==
[2020-10-08 11:04] VITALS: BP 139/76; PULSE 71; TEMP 98.5; BMI 24.3
== END 2020-10-08 11:43 | disposition home or self-care (01) ==
LOC: JERFT 10:56
DX: M79.672 Pain in left foot (principal)
CPT/HCPCS: 73630-TC-LT; 99283-25

== ENCOUNTER 2021-06-17 10:16 | Emergency (ER) | payer OTHER ==
[2021-06-17 10:28] VITALS: BMI 28.6
[2021-06-17] MEDS ORDERED: amLODIPine BESYLATE 10 MG TABLET (FP) PO ONE (11:22)
[2021-06-17] MEDS ORDERED: amLODIPine BESYLATE 10 MG TABLET (FP) ONE (12:08)
[2021-06-17 12:33] LABS: BASO % 0.3 % (0-2.0); EOS % 0.8 % (0-4.5); HEMATOCRIT 36.1 % (32.4-45.2); HEMOGLOBIN 11.4 GM/dL (10.7-15.3); LYMPH % 14.8 % (8-40); MCH 23.7 pg (25.7-33.7); MCHC 31.7 g/dl (32.0-36.0); MEAN CELL VOLUME 74.8 fl (80-96); MEAN PLT VOLUME 9.5 fl (7.5-11.1); MONO % 6.3 % (3.8-10.2); NEUT % 77.8 % (42.8-82.8); PLATELET COUNT 256 10^3/uL (134-434); RBC 4.82 M/mm3 (3.60-5.2); RDW 14.4 % (11.6-15.6); WHITE BLOOD COUNT 9.8 K/mm3 (4.0-10.0)
[2021-06-17 12:37] LABS: EPI CELLS 18 /uL (0-25.1); HYALINE CASTS 0 /uL (0-3.1); URINE APPEARANCE CLEAR; URINE BACTERIA 287 /uL (0-1359); URINE BILIRUBIN NEGATIVE (NEGATIVE); URINE COLOR YELLOW; URINE GLUCOSE (UA) NEGATIVE (NEGATIVE); URINE KETONE NEGATIVE (NEGATIVE); URINE LEUK ESTERASE NEGATIVE (NEGATIVE); URINE NITRITE NEGATIVE (NEGATIVE); URINE PROTEIN NEGATIVE (NEGATIVE); URINE RBC 10 /uL (0-23.9); URINE UROBILINOGEN 0.2 mg/dL (0.2-1.0); URINE WBC 2 /uL (0-25.8)
[2021-06-17 12:38] LABS: HCG,QUALITATIVE URINE Negative
[2021-06-17] MEDS ORDERED: ALPRAZolam 0.25 MG TABLET PO ONE (12:42)
[2021-06-17] MEDS ORDERED: ALPRAZolam 0.25 MG TABLET ONE (13:18)
[2021-06-17 14:00] LABS: BLOOD UREA NITROGEN 9.5 mg/dL (7-18); CALCIUM 9.5 mg/dL (8.5-10.1)
[2021-06-17 14:03] LABS: CREATININE 0.7 mg/dL (0.55-1.3)
[2021-06-17 14:04] LABS: TOT PROT 7.8 g/dl (6.4-8.2)
[2021-06-17 14:12] VITALS: TEMP 98.3
[2021-06-17 14:16] LABS: BILIRUBIN,TOTAL 0.9 mg/dL (0.2-1)
[2021-06-17 15:12] VITALS: BP 139/95
[2021-06-17 16:22] VITALS: PULSE 102
== END 2021-06-17 15:30 | disposition home or self-care (01) ==
LOC: JER 10:16
DX: I16.0 Hypertensive urgency (principal)
CPT/HCPCS: 36415; 71046-TC-FY; 80053; 81003; 84703; 85025; 93005; 93010; 99285-25; C9803; U0003; U0005

== ENCOUNTER 2022-02-23 09:55 | Emergency (ER) | payer OTHER ==
[2022-02-23 10:11] VITALS: BP 151/102; PULSE 97; RESP 20; TEMP 98.7; BMI 27.8
[2022-02-23] MEDS ORDERED: IBUPROFEN 600 MG TABLET (FP) PO ONE ×2 (10:35→10:45)
== END 2022-02-23 11:45 | disposition home or self-care (01) ==
LOC: JERFT 09:55
DX: M79.89 Other specified soft tissue disorders (principal)
CPT/HCPCS: 73562-TC-LT-FY; 73590-TC-LT-FY; 73610-TC-LT-FY; 99284-25

== ENCOUNTER 2022-03-29 10:37 | Emergency (ER) | payer OTHER ==
[2022-03-29 11:06] VITALS: BP 150/100; PULSE 86; BMI 27.9
== END 2022-03-29 13:04 | disposition home or self-care (01) ==
LOC: JERFT 10:37
DX: M79.605 Pain in left leg (principal)
CPT/HCPCS: 99281-25